=== PATIENT | male | born 1970 | race Hispanic/Latino ===

== ENCOUNTER → 2018-12-06 | Outpatient (CLI) | payer BC ==
--- NOTE | 2018-12-06 16:54 | Diagnostic Imaging Report ---
EXAMINATION: Scrotal ultrasound CLINICAL INDICATION: Right groin pain. COMPARISON: None. TECHNIQUE: Grayscale and color Doppler evaluation of the scrotum was performed in transverse and longitudinal planes. FINDINGS: The right testicle measures 5.1 x 2.1 x 3.4 cm. There are no masses or calcifications.. The right epididymis measures 0.9 x 0.7 x 1.0 cm. No nodules or masses.. There is no evidence of right hydrocele or varicocele. There is normal flow to the right testicle, without evidence of torsion. The left testicle measures 4.8 x 2.2 x 3.4 cm. There are no masses or calcifications.. The left epididymis measures 1 x 0.5 x 0.8 cm. No nodules or masses.. There is no evidence of left hydrocele or varicocele. There is normal flow to the left testicle without evidence of torsion. The scrotum has a normal appearance, without focal lesions. Bilateral inguinal lymph nodes of benign morphology are incidentally noted. Impression: Unremarkable sonographic appearance of the testes. Signed by: Dr. Murtaza Gooden M.D. on 12/06/2018 4:51 PM
== END ==
LOC: US 15:07
PROVIDERS: ATTEND Family Medicine
DX: R10.31 Right lower quadrant pain (principal)
CPT/HCPCS: 76870; 93976